=== PATIENT | male | born 1945 | race Caucasian/White ===

== ENCOUNTER 2016-09-03 20:43 | Emergency (ER) | payer BC ==
[~2016-09-03] VITALS: Ht 172.7 cm; Wt 79.3 kg
[~2016-09-03 20:43] MED LIST: BNC/40 PO; DIPH38TA PO; FRS/40 PO; HYDR12.55 PO; LANS30CA12 PO; TACR1CAP7 PO; ZOLP10TA PO
[2016-09-03 20:51] VITALS: TEMP 36.8; Ht 172.7 cm; Wt 79.3 kg
[2016-09-03] MEDS ORDERED: ALBUTEROL HFA 8 GM INHALER INH STA (21:01)
--- NOTE | 2016-09-03 21:03 | EMERGENCY ROOM VISIT NOTE ---
History Report prepared by Everardo: Reji Hirsch Under the Supervision of: Dr. Ty Monsivais M.D. First contact with patient: 20:56 Chief Complaint: SHORTNESS OF BREATH Stated Complaint: COUGH,CONGESTION;SOB History of Present Illness The patient is a 70 year old male who presents to the Emergency Room with complaints of persistent cough that started a week ago. The patient notes that the cough is productive. He also complains of congestion and shortness of breath. He notes his symptoms are worsened with laying down. The patient takes Lasix as needed. He has taken some with the cough, but he notes it didn't seem to help relieve his symptoms. Source of History: patient Onset: a week ago Position: other (global) Quality: other (productive) Timing: other (persistent) Modifying Factors (Worsening): other (laying down) Associated Symptoms: + SOB Note: Other associated symptoms: congestion Review of Systems See HPI for pertinent positives & negatives. A total of 10 systems reviewed and were otherwise negative. Past Medical & Surgical Medical Problems: (1) No pertinent past medical history Family History No pertinent family history Social History Smoking Status: Never Smoker Alcohol Use: none Marital Status: Occupation Status: retired Current/Historical Medications Scheduled Azithromycin (Zithromax), 250 MG PO DAILY Hydrochlorothiazide (Hydrochlorothiazide), 1 TAB PO QAM Losartan Potassium (Cozaar), 100 MG PO QAM Tacrolimus (Tacrolimus), 1 MG PO HS Zolpidem Tartrate (Ambien), 10 MG PO HS Scheduled PRN Bumetanide (Bumetanide), 1 MG PO DAILY PRN for PRN Diphenhydramine-Acetaminophen (Excedrin Pm), 1 TAB PO DAILY PRN for Pain Lansoprazole (Prevacid), 30 MG PO DAILY PRN for Indigestion Allergies Coded Allergies: Iodinated Diagnostic Agents (Verified Allergy, Unknown, "IV CONTRAST" ALLERGY - UNKNOWN RXN, 09/03/16) Mycophenolate (Verified Allergy, Unknown, Seiziures, 09/03/16) Physical Exam Vital Signs Date Time Temp Pulse Resp B/P Pulse Ox O2 Delivery O2 Flow Rate FiO2 09/03/16 22:34 92 20 165/107 99 Nebulizer 09/03/16 22:15 90 20 180/124 99 Room Air 09/03/16 21:42 93 14 96 Room Air 09/03/16 21:18 Room Air 09/03/16 20:51 36.8 112 22 215/126 96 Room Air Physical Exam GENERAL: Patient is a healthy-appearing well-nourished HEAD: Normocephalic atraumatic EYES: Ocular movements intact pupils equal and react to light OROPHARYNX mucous membranes are moist no exudates present no erythema or edema present NECK: Supple no nuchal rigidity CHEST: Good equal expansion LUNGS: Bilateral wheezing noted. CARDIAC: Normal S1 and S2 ABDOMEN: Soft nontender no guarding BACK: No CVA tenderness EXTREMITIES: No pain upon palpation normal muscle strength in all groups no clubbing cyanosis or edema NEURO: Patient is following commands is answering questions appropriately. Alert and oriented x3 Cranial Nerves 2-12 grossly intact Medical Decision & Procedures ER Provider Diagnostic Interpretation: X-ray results as stated below per interpretation by me and the radiologist: CHEST ONE VIEW PORTABLE CLINICAL HISTORY: Wheezing COMPARISON STUDY: 12/17/2011 FINDINGS: There are postsurgical changes of midline sternotomy. The heart remains enlarged. There is no failure. There is no focal pulmonary consolidation. There are no pleural effusions. There are old right-sided rib fractures.[ IMPRESSION: Cardiomegaly. No acute findings. Electronically signed by: Shahid Gutierrez M.D. 09/03/2016 9:16 PM Dictated Date/Time: 09/03/2016 9:15 PM Laboratory Results Test 09/03/16 21:05 Influenza Type A (RT-PCR) Neg for Influ A (NEG) Influenza Type A Antigen Neg for Influ A (NEG) Influenza Type B Antigen Neg for Influ B (NEG) Influenza Type B (RT-PCR) Neg for Influ B (NEG) Labs reviewed by ED physician. Medications Administered Medications (Trade) Dose Ordered Sig/Nicole Route Start Time Stop Time Status Last Admin Dose Admin Albuterol/ Ipratropium (Duoneb) 12 ml ONE ONCE INH 09/03/16 21:15 09/03/16 21:16 DC 09/03/16 21:38 12 ML Albuterol (Ventolin Hfa Inhaler) 2 puffs NOW STAT INH 09/03/16 21:01 09/03/16 21:03 DC 09/03/16 21:17 2 PUFFS Azithromycin (Zithromax Tab) 500 mg NOW STAT PO 09/03/16 21:28 09/03/16 21:29 DC 09/03/16 22:31 500 MG ED Course 2052: Past medical records reviewed. The patient was evaluated in room C1. A complete history and physical examination was performed. 2058: At this time, I recommended blood-work and admission to the hospital which the patient is adamantly refusing. The patient also refuses that we contact [place] at this time. 2100: Ordered Albuterol 2 puffs INH. 2114: Ordered Duoneb 12 ml INH. 2127: Ordered Azithromycin 500 mg PO. 2145: Upon reexamination the patient is resting comfortably. I discussed results and treatment plan with the patient. He verbalizes agreement and understanding. The patient is ready for discharge. Medical Decision Differential diagnosis: Etiologies such as infections, reactive airway disease, pneumonia, pneumothorax , COPD, CHF, cardiac ischemia, pulmonary embolism, musculoskeletal, gastrointestinal, as well as others were entertained. This is a 70-year-old male that presents emergency department complaining of shortness of breath. The patient has a history of congestive heart failure as well as heart transplant however he is refusing all laboratory work as well as an IV though I recommended here in the emergency department. He is requesting a breathing treatment as well as an inhaler to use at home along with an antibiotic. His chest x-ray does not show any evidence of pneumonia. His flu swab is negative. Based on these findings I felt that the patient can be discharged home for follow-up this primary care physician. Patient and are in agreement with the treatment plan. The patient has demonstrated no significant defect in the decision-making capacity to make choices. The encounter had a good level of communication with language the patient can easily understand. I feel trust was present and conveyed that our action/intentions were the best interest of the patient. The patient was given all relevant information and reiterated the explained risks and benefits. The patient explained the reasoning for refusing treatment clearly. The patient possesses and expresses a set of values and goals, the ability to communicate and understand, and an ability to reason and deliberate. Despite acting emphatically, attentively and with the utmost patient's the patient declined further treatment. I offered options, negotiated, and explored every reasonable choice. I must respect the patient's autonomy and that they feel that their choices are best for them despite the associated risks of leaving without completing the evaluation. The patient was informed about the findings as listed above. All questions were answered and he was pleased with the treatment. Return instructions were outlined and the patient was discharged in stable condition. Impression Primary Impression: Bronchitis Scribe Attestation The scribe's documentation has been prepared under my direction and personally reviewed by me in its entirety. I confirm that the note above accurately reflects all work, treatment, procedures, and medical decision making performed by me. Departure Information Dispostion Home / Self-Care Prescriptions Azithromycin (ZITHROMAX) 250 Mg Tab 250 MG PO DAILY, #4 TAB Prov: Ty Monsivais MD 09/03/16 Referrals Levon Vasquez Jr,D.O. (PCP) Forms HOME CARE DOCUMENTATION FORM, IMPORTANT VISIT INFORMATION Patient Instructions ED Bronchitis Abx Tx, My [facility] Additional Instructions Use inhaler twice every 6 hours You have been examined and treated today on an emergency basis only. This is not a substitute for, or an effort to provide, complete comprehensive medical care. It is impossible to recognize and treat all injuries or illnesses in a single emergency department visit. It is therefore important that you follow up closely with Dr Vasquez. Call as soon as possible for an appointment. Thank you for your time and consideration. I look forward to speaking with you again soon. Please don't hesitate to call us if you have any questions.
[2016-09-03] MEDS ORDERED: ALBUT/IPRATROP 3MG/0.5MG NEB 3 ML VIAL INH ONE (21:15)
--- NOTE | 2016-09-03 21:18 | DIAGNOSTIC IMAGING REPORT ---
CHEST ONE VIEW PORTABLE CLINICAL HISTORY: Wheezing COMPARISON STUDY: 12/17/2011 FINDINGS: There are postsurgical changes of midline sternotomy. The heart remains enlarged. There is no failure. There is no focal pulmonary consolidation. There are no pleural effusions. There are old right-sided rib fractures.[ IMPRESSION: Cardiomegaly. No acute findings. Electronically signed by: Shahid Gutierrez M.D. 09/03/2016 9:16 PM Dictated Date/Time: 09/03/2016 9:15 PM
[2016-09-03] MEDS ORDERED: AZITHROMYCIN 250 MG TAB PO STA (21:28)
[2016-09-03] MEDS ORDERED: BMX1 PO (21:29)
[2016-09-03] MEDS ORDERED: TACR1CAP14 PO (21:29)
[2016-09-03] MEDS ORDERED: LOSA100T65 PO (21:29)
[2016-09-03] MEDS ORDERED: AZIT-60 PO (21:30)
[2016-09-03 21:42] VITALS: PULSE 93; O2SAT 96
[2016-09-03 22:34] VITALS: BP 165/107; PULSE 92; O2SAT 99
[2016-09-03 23:34] LABS: INFLUENZA A PCR Neg for Influ A (NEG); INFLUENZA B PCR Neg for Influ B (NEG)
== END 2016-09-03 22:50 | disposition home or self-care (01) ==
LOC: C.EDB 20:45 → C.EDC 22:50
DX: J40 Bronchitis, not specified as acute or chronic (principal); I50.9 Heart failure, unspecified; Z94.1 Heart transplant status; Z79.899 Other long term (current) drug therapy